=== PATIENT | female | born 1975 | race Caucasian/White ===

== ENCOUNTER 2016-09-30 10:26 | Emergency (ER) | payer OTHER, BC ==
[~2016-09-30 10:26] MED LIST: Lidocaine 1% with EPINEPHrine 1:100,000 20 ML MDV INFILT ONE
[2016-09-30] MEDS ORDERED: ClonazePAM 0.5 MG Tab PO ONE (11:06)
[2016-09-30] MEDS ORDERED: Metoprolol Tartrate 50 MG Tab PO ONE (11:07)
[2016-09-30] MEDS ORDERED: Lidocaine 2% Viscous Solution 15 ML Cup PO ONE (11:53)
[2016-09-30] MEDS ORDERED: Lidocaine 1% with EPINEPHrine 1:100,000 20 ML MDV INJECT ONE (12:13)
--- NOTE | 2016-09-30 12:13 | EDM.PDOC ---
ED HPI GENERAL MEDICAL PROBLEM - General Chief Complaint: General Stated Complaint: BLEEDING Time Seen by Provider: 09/30/16 10:45 Source of Information: Reports: Patient, Old records History Limitations: Reports: No limitations - History of Present Illness INITIAL COMMENTS - FREE TEXT/NARRATIVE: 40 yo female with a clotting disorder, protein C deficiency, who is on warfarin and who has been experiencing elevated BP recently without treatment. She bit her tongue in the night and cannot get it to stop. INR 3.5 last week. Onset: today Onset Date: 09/30/16 Onset Time: 02:30 Duration: Hour(s):, Constant Location: Reports: head (R side of tongue) Quality: Reports: Other (no pain) Severity: mild Improves with: Reports: None Worsens with: Reports: None Context: Reports: Other (HTN/Warfarin ) Associated Symptoms: Reports: denies other symptoms - Related Data Allergies Allergy/AdvReac Type Severity Reaction Status Date / Time No Known Allergies Allergy Verified 09/30/16 10:45 Home Meds: Home Meds DULoxetine [Cymbalta] 60 mg PO DAILY 04/15/16 [History] Fenofibrate [Fenofibrate] 1 tab PO DAILY 04/15/16 [History] Minocycline [Minocin] 1 cap PO BID 04/15/16 [History] Phytonadione [Vitamin K] 100 mcg PO DAILY 04/15/16 [History] Warfarin [Coumadin] 5 mg PO MOWEFR 04/15/16 [History] Warfarin [Coumadin] 7.5 mg PO SUTUTHSA 04/15/16 [History] clonazePAM [Clonazepam] 0.5 mg PO ASDIRECTED PRN 04/15/16 [History] Cyclobenzaprine [Flexeril] 10 mg PO TID PRN 09/30/16 [History] Past Medical History Cardiovascular History: Reports: Blood clots/VTE/DVT, Other (see below) Other Cardiovascular History: States she has had 3-4 blood DVT's in the past. Psychiatric History: Reports: Other (see below) Other Psychiatric History: Takes Lorazepam prn. Hematologic History: Reports: Other (see below) Other Hematologic History: Protein C deficiency. - Infectious Disease History Infectious Disease History: Reports: Chicken pox, Shingles Other Infectious Disease History: Denies any milti-drug resistant infections. - Past Surgical History GI Surgical History: Reports: Other (see below) Other GI Surgeries/Procedures: History of colon resection due to diverticulitis. Female Surgical History: Reports: Breast reduction, Hysterectomy, Other (see below) Other Female Surgeries/Procedures: States she has one ovary remaining. Social & Family History - Tobacco Use Smoking Status *Q: Never Smoker - Caffeine Use Caffeine Use: Reports: Soda - Recreational Drug Use Recreational Drug Use: No ED ROS GENERAL - Review of Systems Review Of Systems: See Below Constitutional: Reports: no symptoms HEENT: Reports: Other (bleeding tongue) Respiratory: Reports: No Symptoms Cardiovascular: Reports: No symptoms Skin: Reports: no symptoms Neurological: Reports: No Symptoms ED EXAM, GENERAL - Physical Exam Exam: See Below Exam Limited By: No limitations General Appearance: alert, WD/WN, no apparent distress Eye Exam: bilateral eye: normal inspection Ears: normal external exam, normal canal, hearing grossly normal Ear Exam: bilateral ear: auricle normal, canal normal Nose: normal inspection, normal mucosa, no blood Throat/Mouth: Normal inspection, Normal lips, Normal teeth, Normal gums, Normal oropharynx, Normal voice, No airway compromise Head: atraumatic, normocephalic Neck: normal inspection, supple Respiratory/Chest: no respiratory distress, lungs clear, normal breath sounds, no accessory muscle use Cardiovascular: regular rate, rhythm, no edema Neurological: alert, oriented, CN II-XII intact, normal cognition, no motor/ sensory deficits Psychiatric: normal affect, normal mood Skin Exam: Warm, Dry, Intact, Normal color, No rash Lymphatic: no adenopathy Course - Vital Signs Text/Narrative:: viscous xylocaine po-silver nitrate-unable to stop bleeding metoprolol tartrate 50 mg po 1% lidocaine with epi locally. Single purse stitch with 4-0 Vicryl Last Recorded V/S: Last Vital Signs Temp Pulse 73 09/30/16 11:17 Resp 18 09/30/16 10:30 BP 157/99 H 09/30/16 11:17 Pulse Ox 100 09/30/16 10:30 - Orders/Labs/Meds Labs: Laboratory Tests 09/30/16 Range/Units 10:55 PT 37.1 H* (8.7-11.1) INR 3.58 H (0.89-1.13) Meds: Medications Discontinued Medications Generic Name Dose Route Start Last Admin Trade Name Freq PRN Reason Stop Dose Admin Clonazepam 0.5 mg 09/30/16 11:06 09/30/16 11:18 Klonopin PO 09/30/16 11:07 0.5 mg ONETIME ONE Administration Lidocaine HCl 15 ml 09/30/16 11:53 Xylocaine 2% Viscous PO 09/30/16 11:54 ONETIME ONE Lidocaine/Epinephrine 3 ml 09/30/16 12:13 Xylocaine 1% With Epinephrine 1:100,000 INJECT 09/30/16 12:14 ONETIME ONE Metoprolol Tartrate 50 mg 09/30/16 11:07 09/30/16 11:17 Lopressor PO 09/30/16 11:08 50 mg ONETIME ONE Administration Departure - Departure Time of Disposition: 12:29 Disposition: Home, Self-Care 01 Condition: good Clinical Impression: Tongue laceration Qualifiers: Encounter type: initial encounter Qualified Code(s): S01.512A - Laceration without foreign body of oral cavity, initial encounter Forms: ED Department Discharge
[2016-09-30 15:46] VITALS: BP 159/97
== END 2016-09-30 12:42 | disposition home or self-care (01) ==
LOC: FB.ED 10:26
DX: S01.512A Laceration without foreign body of oral cavity, initial encounter (principal); D68.8 Other specified coagulation defects; D68.59 Other primary thrombophilia; Z86.718 Personal history of other venous thrombosis and embolism; Z90.49 Acquired absence of other specified parts of digestive tract; Z90.710 Acquired absence of both cervix and uterus; Z79.01 Long term (current) use of anticoagulants; Z79.899 Other long term (current) drug therapy; X58.XXXA Exposure to other specified factors, initial encounter
CPT/HCPCS: 36415; 41250; 85610; 99283; A9270; 12001; 12011

== ENCOUNTER 2016-12-21 11:55 | Emergency (ER) | payer OTHER, BC ==
[2016-12-21] MEDS ORDERED: Iopamidol 755 Mg/ML 100 ML Bottle IV SCH (12:30)
[2016-12-21 13:36] VITALS: BP 146/94
--- NOTE | 2016-12-22 02:20 | ER ---
DATE SEEN: 12/21/2016 HISTORY OF PRESENT ILLNESS: The patient is a 41-year-old female, who presents to the emergency department with left lower quadrant pain. She says she has had a history of diverticulitis in the past as well as gastric bypass. Abdominal pain started yesterday and progressively got worse, it remains localized to this area. She has also had a hysterectomy and one ovary removed. Her left ovary still in place. She says the pain is again pretty much in left lower quadrant pain. Sometimes, it feels like it is her left ovary. She denies any dysuria or hematuria. Did have a normal bowel movement yesterday. No nausea or fever. Denies any recent travels, trauma, or unusual foods. MEDICATIONS: 1. Coumadin. 2. Clonazepam. 3. Minocycline. 4. Lisinopril hydrochlorothiazide. 5. Fenofibrate. 6. Cymbalta. 7. Flexeril. ALLERGIES: No known drug allergies. PAST MEDICAL HISTORY: Pleurisy, dehydration, status post gastric bypass, status post hysterectomy. REVIEW OF SYSTEMS: CARDIOVASCULAR: No chest pain. PHYSICAL EXAMINATION: VITAL SIGNS: Afebrile at 36.8, pulse 72, blood pressure 146/94, 18 respiratory rate. LUNGS: Clear to auscultation. HEART: Regular rate and rhythm. ABDOMEN: Soft. Mild tenderness to palpation in left lower quadrant. No guarding. No rebound. No costovertebral angle tenderness. EXTREMITIES: No cyanosis, clubbing, or edema. LABORATORY DATA: Normal white count. Her INR is 3.53. Metabolic panel is within normal limits with creatinine of 0.8. Her AST is 27, her ALT is 31, her alkaline phosphatase is 33. Her urinalysis essentially within normal limits. Abdominal CT read by consulted Radiology as unremarkable. CT of abdomen and pelvis, no diverticular disease. EMERGENCY DEPARTMENT COURSE: The patient remained vitally stable. Pain mild. ASSESSMENT: Left lower quadrant pain. PLAN: Unclear etiology. We will encourage her to continue a bland diet. May use Tylenol for pain. Follow up primary physician in next couple of days. /[id number] KELL/UBALDO
== END 2016-12-21 15:05 | disposition home or self-care (01) ==
LOC: FB.ED 11:55
DX: R10.32 Left lower quadrant pain (principal); E86.0 Dehydration; Z98.84 Bariatric surgery status; Z90.710 Acquired absence of both cervix and uterus
CPT/HCPCS: 36415; 74177; 80053; 81001; 82150; 85025; 85610; 99284; Q9967

== ENCOUNTER 2017-01-12 11:36 | Emergency (ER) | payer OTHER, BC ==
[2017-01-12 11:48] VITALS: BP 141/87
[2017-01-12] MEDS ORDERED: Morphine 10 MG/ML Syringe IM ONE (11:53)
[2017-01-12] MEDS ORDERED: fentaNYL 100 MCG/2 ML SDV IVPUSH ONE (12:23)
[2017-01-12] MEDS ORDERED: Ketorolac 30 MG/ML SDV IVPUSH ONE (12:23)
--- NOTE | 2017-01-12 13:59 | ER ---
DATE SEEN: 01/12/2017 CHIEF COMPLAINT: Pain. HISTORY OF PRESENT ILLNESS: This is a 41-year-old female with back pain that started getting worse yesterday after she helped with some yard work. It is going down to the left lower extremity. Any weightbearing makes it worse. It is described as severe cramping. REVIEW OF SYSTEMS: No fever. No urinary symptoms. PAST MEDICAL HISTORY: Fibromyalgia. PHYSICAL EXAMINATION: VITAL SIGNS: Blood pressure is normal. Temperature is 97.3. BACK: Low back no obvious swelling. There is tenderness to palpation almost everywhere and range of motion unlimited but she is stiff. NEUROLOGIC: Showed no focal findings. LABORATORY DATA: None. IMPRESSION: Acute exacerbation of chronic back pain. PLAN: I initially gave her morphine and Valium, symptoms only marginally improved. I sent her home today and gave her ketorolac and some fentanyl. I will discharge her home on Flexeril 3 times a day p.r.n. and Percocet 3 times a day p.r.n. only 10 tablets. Follow up in the office next week. Time seen was 12 p.m. /[id number] PALMA/UBALDO
== END 2017-01-12 13:15 | disposition home or self-care (01) ==
LOC: FB.ED 11:36
DX: M54.9 Dorsalgia, unspecified (principal); G89.29 Other chronic pain
CPT/HCPCS: 96372; 96374; 96375; 99283; J1885; J2270; J3010; J3360

== ENCOUNTER 2017-10-07 10:26 | Emergency (ER) | payer OTHER, BC ==
[2017-10-07] MEDS ORDERED: Ondansetron 4 MG/2 ML SDV IVPUSH ONE (10:44)
--- NOTE | 2017-10-07 11:02 | EDM.PDOC ---
ED HPI GENERAL MEDICAL PROBLEM - General Stated Complaint: CHEST PAIN Time Seen by Provider: 10/07/17 10:26 Source of Information: Reports: Patient, Family History Limitations: Reports: No Limitations - History of Present Illness INITIAL COMMENTS - FREE TEXT/NARRATIVE: 41 y.o.w.f with a eriberto FH of CAD, came to the ed because of SSCP radiating to her left lat chest wall. Pt has protein S deficiency and is and Coumadin for that. She take VIT K as well in order to "stabilize" the INR while on Coumadin. 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 an INR level of 3.3 is "nl for her ". The pain is worse when she takes a deep breath. No N/V/D no lightheadedness, no dizziness or any other acute medical issues. BP 157/87 pulse 77 RR 18 Temp 36.8 Onset Date: 10/07/17 Onset Time: 07:00 Duration: Intermittent, Waxing/Waning Location: Reports: Chest Quality: Reports: Ache, Burning, Dull, Same as Previous Episode Severity: Mild Improves with: Reports: Rest Worsens with: Reports: Movement (taking a deep breath) Context: Reports: Other (F/H of CAD) Left Chest Pain Score (Numeric/FACES): 3 - Related Data Allergies Allergy/AdvReac Type Severity Reaction Status Date / Time No Known Allergies Allergy Verified 10/07/17 10:45 Home Meds: Home Meds DULoxetine [Cymbalta] 120 mg PO DAILY 04/15/16 [History] Fenofibrate 1 tab PO DAILY 04/15/16 [History] Minocycline [Minocin] 2 cap PO BID 04/15/16 [History] Phytonadione [Vitamin K] 100 mcg PO DAILY 04/15/16 [History] Warfarin [Coumadin] 5 mg PO .Thursday04/15/16 [History] Warfarin [Coumadin] 7.5 mg PO .SUTUWETHFRSA 04/15/16 [History] clonazePAM [Clonazepam] 0.5 mg PO ASDIRECTED PRN 04/15/16 [History] Cyclobenzaprine [Flexeril] 10 mg PO TID PRN 09/30/16 [History] ClonazePAM [KlonoPIN] 1 mg PO BEDTIME 10/07/17 [History] Ferrous Gluconate 324 mg PO DAILY 10/07/17 [History] Levofloxacin 500 mg PO DAILY #10 tablet 10/07/17 [Rx] traMADol [Ultram] 50 mg PO Q4H PRN #16 tab 10/07/17 [Rx] Past Medical History Cardiovascular History: Reports: Blood Clots/VTE/DVT, Other (See Below) Other Cardiovascular History: States she has had 3-4 blood DVT's in the past. Psychiatric History: Reports: Other (See Below) Other Psychiatric History: Takes Lorazepam prn. Hematologic History: Reports: Other (See Below) Other Hematologic History: Protein C deficiency. - Infectious Disease History Infectious Disease History: Reports: Chicken Pox, Shingles Other Infectious Disease History: Denies any milti-drug resistant infections. - Past Surgical History GI Surgical History: Reports: Other (See Below) Female Surgical History: Reports: Breast Reduction, Hysterectomy, Other (See Below) Social & Family History - Family History Family Medical History: Noncontributory - Tobacco Use Smoking Status *Q: Never Smoker Second Hand Smoke Exposure: No - Caffeine Use Caffeine Use: Reports: None - Recreational Drug Use Recreational Drug Use: No ED ROS GENERAL - Review of Systems Review Of Systems: See Below Constitutional: Reports: No Symptoms HEENT: Reports: No Symptoms Respiratory: Reports: No Symptoms Cardiovascular: Reports: Chest Pain, Palpitations Endocrine: Reports: No Symptoms GI/Abdominal: Reports: No Symptoms : Reports: No Symptoms Musculoskeletal: Reports: No Symptoms Skin: Reports: No Symptoms Neurological: Reports: No Symptoms Psychiatric: Reports: Anxiety Hematologic/Lymphatic: Reports: No Symptoms Immunologic: Reports: No Symptoms ED EXAM, GENERAL - Physical Exam Exam: See Below Exam Limited By: No Limitations General Appearance: Alert, WD/WN, Anxious, Mild Distress Eye Exam: Bilateral Eye: Normal Inspection Ears: Normal External Exam Ear Exam: Bilateral Ear: Auricle Normal Nose: Normal Inspection, Normal Mucosa Throat/Mouth: Normal Inspection, Normal Lips Head: Atraumatic, Normocephalic Neck: Normal Inspection, Supple, Non-Tender, Full Range of Motion Respiratory/Chest: No Respiratory Distress, Lungs Clear, Normal Breath Sounds Cardiovascular: Normal Peripheral Pulses, Regular Rate, Rhythm, No Edema, No Gallop, No JVD, No Murmur, No Rub Peripheral Pulses: 2+: Radial (L) GI/Abdominal: Normal Bowel Sounds, Soft, Non-Tender, No Organomegaly, No Abnormal Bruit (Female) Exam: Deferred Rectal (Female) Exam: Deferred Back Exam: Normal Inspection, Full Range of Motion Extremities: Normal Inspection, Normal Range of Motion, Non-Tender, No Pedal Edema, Normal Capillary Refill Neurological: Alert, Oriented, CN II-XII Intact, Normal Cognition, Normal Gait, No Motor/Sensory Deficits Psychiatric: Anxious, Tearful Skin Exam: Warm, Dry, Intact, Normal Color, No Rash Lymphatic: No Adenopathy EKG INTERPRETATION EKG Date: 10/07/17 Time: 10:40 Rhythm: NSR Rate (Beats/Min): 77 Hyrum: Normal P-Wave: Present QRS: Normal ST-T: Normal QT: Normal Comparison: NA - No Prior EKG Course - Vital Signs Text/Narrative:: 41 y.o.w.f with a strong FH of CAD, came to the ed because of SSCP radiating to her left lat chest wall. Pt has protein S deficiency and is and Coumadin for that. She take VIT K as well in order to "stabilize" the INR while on Coumadin. 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 an INR level of 3.3 is "nl for her ". The pain is worse when she takes a deep breath. No N/V/D no lightheadedness, no dizziness or any other acute medical issues. BP 157/87 pulse 77 RR 18 Temp 36.8 PE: WNWD W F C/O Pleuritic chest pain, in tears. No trauma, pt was seen the ed for same. Labs: CBC, BMP D Dimer Cardiac enzymes were all neg. UA pos for UTI INR 3.35 ( pt is on Coumadine) ECG: NSR No acute ST/T wave elevation. Imaging: CXR R diaphragm elevating due to poor insp: NAD as per RAD Impression: Atypical Chest pein, UTI Tx: Toradol, Ultram, Levoquin Reexam: Pain Improved, BP improved as well to 135/87 Plan: D/C with instructions Last Recorded V/S: Last Vital Signs Temp 36.3 C 10/07/17 13:35 Pulse 72 10/07/17 12:30 Resp 18 10/07/17 13:35 BP 135/69 10/07/17 13:35 Pulse Ox 100 10/07/17 13:35 - Orders/Labs/Meds Orders: Active Orders 24 hr Category Date Time Status CULTURE URINE [RM] Stat Lab 10/07/17 11:40 Ordered UA W/MICROSCOPIC [URIN] Stat Lab 10/07/17 11:40 Ordered EKG 12 Lead [EK] Routine Ther 10/07/17 10:31 Ordered Labs: Laboratory Tests 10/07/17 10/07/17 10/07/17 Range/Units 10:45 10:45 10:45 WBC 4.9 (4.5-12.0) X10-3/uL RBC 4.79 (3.23-5.20) x10(6)uL Hgb 14.0 (11.5-15.5) g/dL Hct 42.1 (30.0-51.3) % MCV 87.8 (80-96) fL MCH 29.3 (27.7-33.6) pg MCHC 33.4 (32.2-35.4) g/dL RDW 12.7 (11.5-15.5) % Plt Count 254 (125-369) X10(3)uL MPV 10.6 H (7.4-10.4) fL Neut % (Auto) 52.2 (46-82) % Lymph % (Auto) 38.0 H (13-37) % Reagan % (Auto) 6.4 (4-12) % Eos % (Auto) 2 (1.0-5.0) % Baso % (Auto) 1 (0-2) % Neut # (Auto) 2.5 (1.6-8.3) # Lymph # (Auto) 1.9 (0.6-5.0) # Reagan # (Auto) 0.3 (0.0-1.3) # Eos # (Auto) 0.1 (0.0-0.8) # Baso # (Auto) 0.1 (0.0-0.2) # PT (8.7-11.1) INR (0.89-1.13) D-Dimer, Quantitative < 100 L (100-400) ng/mL Sodium 140 (135-145) mmol/L Potassium 3.8 (3.5-5.3) mmol/L Chloride 105 (100-110) mmol/L Carbon Dioxide 24 (21-32) mmol/L BUN 20 H (7-18) mg/dL Creatinine 0.9 (0.55-1.02) mg/dL Est Cr Clr Drug Dosing TNP Estimated GFR (MDRD) > 60 (>60) BUN/Creatinine Ratio 22.2 H (9-20) Glucose 123 H (80-116) mg/dL Calcium 9.2 (8.6-10.2) mg/dL Troponin I (<0.017-0.056) ng/mL Urine Color (YELLOW) Urine Appearance (CLEAR) Urine pH (5.0-6.5) Ur Specific [place] (1.010-1.025) Urine Protein (NEGATIVE) mg/dL Urine Glucose (UA) (NEGATIVE) mg/dL Urine Ketones (NEGATIVE) mg/dL Urine Occult Blood (NEGATIVE) Urine Nitrite (NEGATIVE) Urine Bilirubin (NEGATIVE) Urine Urobilinogen (NEGATIVE) mg/dL Ur Leukocyte Esterase (NEGATIVE) Urine RBC (0) Urine WBC (0) Ur Squamous Epith Cells (NS,R,O) Urine Bacteria (NS) 10/07/17 10/07/17 10/07/17 Range/Units 10:45 10:45 11:40 WBC (4.5-12.0) X10-3/uL RBC (3.23-5.20) x10(6)uL Hgb (11.5-15.5) g/dL Hct (30.0-51.3) % MCV (80-96) fL MCH (27.7-33.6) pg MCHC (32.2-35.4) g/dL RDW (11.5-15.5) % Plt Count (125-369) X10(3)uL MPV (7.4-10.4) fL Neut % (Auto) (46-82) % Lymph % (Auto) (13-37) % Reagan % (Auto) (4-12) % Eos % (Auto) (1.0-5.0) % Baso % (Auto) (0-2) % Neut # (Auto) (1.6-8.3) # Lymph # (Auto) (0.6-5.0) # Reagan # (Auto) (0.0-1.3) # Eos # (Auto) (0.0-0.8) # Baso # (Auto) (0.0-0.2) # PT 34.2 H (8.7-11.1) INR 3.31 H (0.89-1.13) D-Dimer, Quantitative (100-400) ng/mL Sodium (135-145) mmol/L Potassium (3.5-5.3) mmol/L Chloride (100-110) mmol/L Carbon Dioxide (21-32) mmol/L BUN (7-18) mg/dL Creatinine (0.55-1.02) mg/dL Est Cr Clr Drug Dosing Estimated GFR (MDRD) (>60) BUN/Creatinine Ratio (9-20) Glucose (80-116) mg/dL Calcium (8.6-10.2) mg/dL Troponin I < 0.017 L (<0.017-0.056) ng/mL Urine Color Yellow (YELLOW) Urine Appearance Clear (CLEAR) Urine pH 5.0 (5.0-6.5) Ur Specific [place] 1.020 (1.010-1.025) Urine Protein Negative (NEGATIVE) mg/dL Urine Glucose (UA) Normal (NEGATIVE) mg/dL Urine Ketones Negative (NEGATIVE) mg/dL Urine Occult Blood Negative (NEGATIVE) Urine Nitrite Negative (NEGATIVE) Urine Bilirubin Negative (NEGATIVE) Urine Urobilinogen Normal (NEGATIVE) mg/dL Ur Leukocyte Esterase Moderate H (NEGATIVE) Urine RBC 0-5 (0) Urine WBC 10-20 H (0) Ur Squamous Epith Cells Moderate H (NS,R,O) Urine Bacteria Moderate H (NS) Meds: Medications Discontinued Medications Generic Name Dose Route Start Last Admin Trade Name Freq PRN Reason Stop Dose Admin Sodium Chloride 1,000 mls @ 999 mls/hr 10/07/17 11:20 10/07/17 11:30 Normal Saline IV 10/07/17 12:20 999 mls/hr .BOLUS ONE Administration Ketorolac Tromethamine 30 mg 10/07/17 12:10 10/07/17 12:19 Toradol IVPUSH 10/07/17 12:11 30 mg ONETIME ONE Administration Levofloxacin 500 mg 10/07/17 12:30 10/07/17 12:21 Levaquin PO 10/07/17 12:31 500 mg ONETIME ONE Administration Metoprolol Tartrate 25 mg 10/07/17 13:00 10/07/17 13:09 Lopressor PO 10/07/17 13:01 Not Given ONETIME STA Ondansetron HCl 8 mg 10/07/17 10:44 10/07/17 11:06 Zofran IVPUSH 10/07/17 10:45 8 mg ONETIME ONE Administration Tramadol HCl 50 mg 10/07/17 13:06 10/07/17 13:11 Ultram PO 10/07/17 13:07 50 mg ONETIME ONE Administration Departure - Departure Time of Disposition: 13:15 Disposition: Home, Self-Care 01 Condition: Good Clinical Impression: Atypical chest pain UTI (urinary tract infection) Qualifiers: Urinary tract infection type: acute cystitis Hematuria presence: without hematuria Qualified Code(s): N30.00 - Acute cystitis without hematuria Prescriptions: Levofloxacin 500 mg PO DAILY #10 tablet traMADol [Ultram] 50 mg PO Q4H PRN #16 tab PRN Reason: severe pain Instructions: Nonspecific Chest Pain, [id number] Referrals: Joe Queen MD [Primary Care Provider] - Forms: ED Department Discharge Additional Instructions: Please f/u with your PMD, check INR in 3-4 days, please come back to the ed if your symptoms get worse acutely - My Orders Last 24 Hours: My Active Orders 10/07/17 10:31 EKG 12 Lead [EK] Routine 10/07/17 11:40 CULTURE URINE [RM] Stat UA W/MICROSCOPIC [URIN] Stat - Assessment/Plan Last 24 Hours: My Active Orders 10/07/17 10:31 EKG 12 Lead [EK] Routine 10/07/17 11:40 CULTURE URINE [RM] Stat UA W/MICROSCOPIC [URIN] Stat
[2017-10-07] MEDS ORDERED: Sodium Chloride 0.9% 1,000 ML IV ONE (11:20)
[2017-10-07] MEDS ORDERED: Levofloxacin 250 MG Tab PO ONE (12:10)
[2017-10-07] MEDS ORDERED: Ketorolac 30 MG/ML SDV IVPUSH ONE (12:10)
[2017-10-07] MEDS ORDERED: Levofloxacin 500 MG Tab PO ONE (12:30)
[2017-10-07] MEDS: Metoprolol Tartrate 25 MG Tab PO STA ×2 (13:03→13:09)
[2017-10-07] MEDS ORDERED: traMADol 50 MG Tab PO ONE (13:06)
--- NOTE | 2017-10-07 13:29 | CR ---
INDICATION: Chest pain. CHEST: Two AP portable upright views of the chest were obtained 10/07/2017 and compared with 04/15/2016. Little interval change is suggested with no definite acute process. The heart appears to be normal in size and shape. The aorta is minimally calcified in the arch area. Overlying EKG leads are noted. An active infiltrate or effusion was not identified. IMPRESSION: No acute process - stable chest. MTDD
[2017-10-07 13:42] VITALS: BP 135/69
== END 2017-10-07 13:35 | disposition home or self-care (01) ==
LOC: FB.ED 10:26
DX: R07.89 Other chest pain (principal); N30.00 Acute cystitis without hematuria; Z79.899 Other long term (current) drug therapy
CPT/HCPCS: 36415; 71045; 80048; 81001; 84484; 85025; 85379; 85610; 87086; 93005; 96361; 96374; 96375; 99285; A9270; J1885; J2405; J7040

== ENCOUNTER 2017-12-28 18:50 | Emergency (ER) | payer OTHER, BC ==
[2017-12-28] MEDS ORDERED: Sodium Chloride 0.9% 1,000 ML IV ONE (21:15)
[2017-12-28] MEDS ORDERED: Ondansetron 4 MG/2 ML SDV IVPUSH ONE (21:20)
[2017-12-28] MEDS ORDERED: Ketorolac 30 MG/ML SDV IVPUSH ONE (21:20)
[2017-12-28] MEDS ORDERED: cefTRIAXone 500 MG in Sodium Chloride 0.9% 50 ML IV SCH (21:30)
[2017-12-28] MEDS ORDERED: metroNIDAZOLE/Normal Saline 500 MG in Premix Bag 1 BAG IV SCH (21:30)
[2017-12-28] MEDS ORDERED: Sodium Chloride 0.9% 10 ML Syringe FLUSH PRN (22:27)
--- NOTE | 2017-12-28 23:24 | EDM.PDOC ---
ED HPI GENERAL MEDICAL PROBLEM - General Chief Complaint: Abdominal Pain Stated Complaint: STOMACH PAIN Time Seen by Provider: 12/28/17 20:00 Source of Information: Reports: Patient History Limitations: Reports: No Limitations - History of Present Illness INITIAL COMMENTS - FREE TEXT/NARRATIVE: c/o LLQ pain x 5d, getting valerie pain LLQ x 5d, h/o tics x 2 from 5y ago, tx'ed in hospital 2m apart, pt says she never gets in'c WBC with skin infections no f/c/d, BM x 1 daily, has worked pt with resection 7" colon in 2017, pt states she "is not like everyone else" has Leiden Factor 5 deficiency, target INR 2.5-3.5 - Related Data Allergies Allergy/AdvReac Type Severity Reaction Status Date / Time No Known Allergies Allergy Verified 12/28/17 21:04 Home Meds: Home Meds DULoxetine [Cymbalta] 120 mg PO DAILY 04/15/16 [History] Fenofibrate 1 tab PO DAILY 04/15/16 [History] Minocycline [Minocin] 2 cap PO BID 04/15/16 [History] Phytonadione [Vitamin K] 100 mcg PO DAILY 04/15/16 [History] Warfarin [Coumadin] 5 mg PO .Thursday04/15/16 [History] Warfarin [Coumadin] 7.5 mg PO .SUTUWETHFRSA 04/15/16 [History] clonazePAM [Clonazepam] 0.5 mg PO ASDIRECTED PRN 04/15/16 [History] Cyclobenzaprine [Flexeril] 10 mg PO TID PRN 09/30/16 [History] ClonazePAM [KlonoPIN] 1 mg PO BEDTIME 10/07/17 [History] Ferrous Gluconate 324 mg PO DAILY 10/07/17 [History] Levofloxacin 500 mg PO DAILY #10 tablet 10/07/17 [Rx] traMADol [Ultram] 50 mg PO Q4H PRN #16 tab 10/07/17 [Rx] Amoxicillin/Potassium Clav [Augmentin 500-125 Tablet] 1 each PO BID #14 tablet 12/28/17 [Rx] metroNIDAZOLE [Flagyl ER] 750 mg PO BID #14 tab.er 12/28/17 [Rx] Past Medical History Cardiovascular History: Reports: Blood Clots/VTE/DVT, Other (See Below) Other Cardiovascular History: States she has had 3-4 blood DVT's in the past. Gastrointestinal History: Reports: Other (See Below) Other Gastrointestinal History: diverticulitis [employer] History: Reports: Other (See Below) Other OB/BYN History: left ovary removal Psychiatric History: Reports: Other (See Below) Other Psychiatric History: Takes Lorazepam prn. Hematologic History: Reports: Other (See Below) Other Hematologic History: Protein C deficiency. - Infectious Disease History Infectious Disease History: Reports: Chicken Pox, Shingles Other Infectious Disease History: Denies any milti-drug resistant infections. - Past Surgical History GI Surgical History: Reports: Other (See Below) Female Surgical History: Reports: Breast Reduction, Hysterectomy, Other (See Below) Social & Family History - Family History Family Medical History: Noncontributory - Caffeine Use Caffeine Use: Reports: None ED ROS GENERAL - Review of Systems Review Of Systems: See Below Constitutional: Reports: Decreased Appetite HEENT: Reports: No Symptoms, Vertigo Cardiovascular: Reports: No Symptoms Endocrine: Reports: No Symptoms GI/Abdominal: Reports: Abdominal Pain, Nausea. Denies: Vomiting : Reports: No Symptoms Musculoskeletal: Reports: No Symptoms Neurological: Reports: No Symptoms Psychiatric: Reports: No Symptoms ED EXAM, GI/ABD - Physical Exam Exam: See Below Exam Limited By: No Limitations General Appearance: Alert, WD/WN, No Apparent Distress Eyes: Bilateral: Normal Appearance, EOMI Ears: Normal External Exam, Hearing Grossly Normal Nose: Normal Inspection, Normal Mucosa, No Blood Throat/Mouth: Normal Inspection, Normal Lips, Normal Teeth, Normal Gums, Normal Oropharynx, Normal Voice, No Airway Compromise Head: Atraumatic, Normocephalic Neck: Normal Inspection, Supple, Non-Tender, Full Range of Motion Respiratory/Chest: No Respiratory Distress, Lungs Clear, Normal Breath Sounds, No Accessory Muscle Use, Chest Non-Tender Cardiovascular: Regular Rate, Rhythm GI/Abdominal Exam: Normal Bowel Sounds, Soft, Non-Tender, No Organomegaly (Female) Exam: Normal External Exam, Normal Speculum Exam Rectal (Female) Exam: Normal Exam, Normal Rectal Tone Back Exam: Normal Inspection, Full Range of Motion, NT Extremities: Normal Inspection, Normal Range of Motion, Non-Tender, Normal Capillary Refill, No Pedal Edema Neurological: Alert, Oriented, CN II-XII Intact, Normal Cognition, No Motor/ Sensory Deficits Psychiatric: Normal Affect, Normal Mood Skin Exam: Warm, Dry, Intact, Normal Color, No Rash Lymphatic: No Adenopathy Course - Vital Signs Last Recorded V/S: Last Vital Signs Temp 36.7 C 12/28/17 19:30 Pulse 91 12/28/17 19:30 Resp 16 12/28/17 19:30 BP 116/95 H 12/28/17 19:30 Pulse Ox 99 12/28/17 19:30 - Orders/Labs/Meds Orders: Active Orders 24 hr Category Date Time Status UA W/MICROSCOPIC [URIN] Stat Lab 12/28/17 20:45 Ordered Sodium Chloride 0.9% [Saline Flush] Med 12/28/17 22:27 Active 10 ml FLUSH ASDIRECTED PRN cefTRIAXone [Rocephin] 500 mg Med 12/28/17 21:30 Active Sodium Chloride 0.9% [Normal Saline] 50 ml IV Q24H metroNIDAZOLE/Normal Saline [Flagyl 500 MG in NS 100 ML Med 12/28/17 21:30 Active ] 500 mg Premix Bag 1 bag IV Q8H Medication Orders Ceftriaxone Sodium 500 mg/ (Sodium Chloride) 50 mls @ 100 mls/hr IV Q24H CINDY Last Admin: 12/28/17 23:30 Dose: 100 mls/hr Metronidazole 500 mg/ Premix 100 mls @ 100 mls/hr IV Q8H CINDY Last Admin: 12/28/17 22:23 Dose: 100 mls/hr Sodium Chloride (Saline Flush) 10 ml FLUSH ASDIRECTED PRN PRN Reason: IV Use Last Admin: 12/28/17 22:15 Dose: 10 ml Labs: Laboratory Tests 12/28/17 12/28/17 12/28/17 Range/Units 20:45 21:30 21:30 WBC 6.4 (4.5-12.0) X10-3/uL RBC 4.81 (3.23-5.20) x10(6)uL Hgb 14.4 (11.5-15.5) g/dL Hct 42.5 (30.0-51.3) % MCV 88.3 (80-96) fL MCH 29.9 (27.7-33.6) pg MCHC 33.8 (32.2-35.4) g/dL RDW 12.5 (11.5-15.5) % Plt Count 302 (125-369) X10(3)uL MPV 10.4 (7.4-10.4) fL Neut % (Auto) 39.5 L (46-82) % Lymph % (Auto) 49.4 H (13-37) % Campbell % (Auto) 7.1 (4-12) % Eos % (Auto) 3 (1.0-5.0) % Baso % (Auto) 1 (0-2) % Neut # (Auto) 2.5 (1.6-8.3) # Lymph # (Auto) 3.1 (0.6-5.0) # Campbell # (Auto) 0.5 (0.0-1.3) # Eos # (Auto) 0.2 (0.0-0.8) # Baso # (Auto) 0.1 (0.0-0.2) # PT (8.7-11.1) INR (0.89-1.13) Sodium 140 (135-145) mmol/L Potassium 3.6 (3.5-5.3) mmol/L Chloride 103 (100-110) mmol/L Carbon Dioxide 27 (21-32) mmol/L BUN 19 H (7-18) mg/dL Creatinine 1.0 (0.55-1.02) mg/dL Est Cr Clr Drug Dosing TNP Estimated GFR (MDRD) > 60 (>60) BUN/Creatinine Ratio 19.0 (9-20) Glucose 89 (80-116) mg/dL Calcium 9.6 (8.6-10.2) mg/dL Total Bilirubin 0.3 (0.1-1.3) mg/dL AST 20 (5-25) IU/L ALT 36 (12-36) U/L Alkaline Phosphatase 31 L (56-112) IU/L C-Reactive Protein (0.5-0.9) mg/dL Total Protein 7.3 (6.0-8.0) g/dL Albumin 3.8 (3.5-5.2) g/dL Globulin 3.5 g/dL Albumin/Globulin Ratio 1.1 Amylase 46 (25-115) U/L Urine Color Yellow (YELLOW) Urine Appearance Clear (CLEAR) Urine pH 6.5 (5.0-6.5) Ur Specific [place] 1.010 (1.010-1.025) Urine Protein Negative (NEGATIVE) mg/dL Urine Glucose (UA) Normal (NEGATIVE) mg/dL Urine Ketones Negative (NEGATIVE) mg/dL Urine Occult Blood Negative (NEGATIVE) Urine Nitrite Negative (NEGATIVE) Urine Bilirubin Negative (NEGATIVE) Urine Urobilinogen Normal (NEGATIVE) mg/dL Ur Leukocyte Esterase Negative (NEGATIVE) Urine RBC 0-5 (0) Urine WBC 0-5 (0) Ur Squamous Epith Cells Occasional (NS,R,O) Urine Bacteria Rare H (NS) 12/28/17 12/28/17 Range/Units 21:30 21:30 WBC (4.5-12.0) X10-3/uL RBC (3.23-5.20) x10(6)uL Hgb (11.5-15.5) g/dL Hct (30.0-51.3) % MCV (80-96) fL MCH (27.7-33.6) pg MCHC (32.2-35.4) g/dL RDW (11.5-15.5) % Plt Count (125-369) X10(3)uL MPV (7.4-10.4) fL Neut % (Auto) (46-82) % Lymph % (Auto) (13-37) % [place] % (Auto) (4-12) % Eos % (Auto) (1.0-5.0) % Baso % (Auto) (0-2) % Neut # (Auto) (1.6-8.3) # Lymph # (Auto) (0.6-5.0) # Campbell # (Auto) (0.0-1.3) # Eos # (Auto) (0.0-0.8) # Baso # (Auto) (0.0-0.2) # PT 31.2 H (8.7-11.1) INR 3.26 H (0.89-1.13) Sodium (135-145) mmol/L Potassium (3.5-5.3) mmol/L Chloride (100-110) mmol/L Carbon Dioxide (21-32) mmol/L BUN (7-18) mg/dL Creatinine (0.55-1.02) mg/dL Est Cr Clr Drug Dosing Estimated GFR (MDRD) (>60) BUN/Creatinine Ratio (9-20) Glucose (80-116) mg/dL Calcium (8.6-10.2) mg/dL Total Bilirubin (0.1-1.3) mg/dL AST (5-25) IU/L ALT (12-36) U/L Alkaline Phosphatase (56-112) IU/L C-Reactive Protein < 0.2 L (0.5-0.9) mg/dL Total Protein (6.0-8.0) g/dL Albumin (3.5-5.2) g/dL Globulin g/dL Albumin/Globulin Ratio Amylase (25-115) U/L Urine Color (YELLOW) Urine Appearance (CLEAR) Urine pH (5.0-6.5) Ur Specific [place] (1.010-1.025) Urine Protein (NEGATIVE) mg/dL Urine Glucose (UA) (NEGATIVE) mg/dL Urine Ketones (NEGATIVE) mg/dL Urine Occult Blood (NEGATIVE) Urine Nitrite (NEGATIVE) Urine Bilirubin (NEGATIVE) Urine Urobilinogen (NEGATIVE) mg/dL Ur Leukocyte Esterase (NEGATIVE) Urine RBC (0) Urine WBC (0) Ur Squamous Epith Cells (NS,R,O) Urine Bacteria (NS) Meds: Medications Generic Name Dose Route Start Last Admin Trade Name Freq PRN Reason Stop Dose Admin Ceftriaxone Sodium 500 mg/ 50 mls @ 100 mls/hr 12/28/17 21:30 12/28/17 23:30 Sodium Chloride IV 100 mls/hr Q24H CINDY Administration Metronidazole 500 mg/ Premix 100 mls @ 100 mls/hr 12/28/17 21:30 12/28/17 22: 23 IV 100 mls/hr Q8H CINDY Administration Sodium Chloride 10 ml 12/28/17 22:27 12/28/17 22:15 Saline Flush FLUSH 10 ml ASDIRECTED PRN Administration IV Use Discontinued Medications Generic Name Dose Route Start Last Admin Trade Name Freq PRN Reason Stop Dose Admin Sodium Chloride 1,000 mls @ 999 mls/hr 12/28/17 21:15 12/28/17 22:17 Normal Saline IV 12/28/17 22:15 999 mls/hr .BOLUS ONE Administration Ketorolac Tromethamine 30 mg 12/28/17 21:20 12/28/17 22:19 Toradol IVPUSH 12/28/17 21:21 30 mg ONETIME ONE Administration Ondansetron HCl 4 mg 12/28/17 21:20 12/28/17 22:21 Zofran IVPUSH 12/28/17 21:21 4 mg ONETIME ONE Administration Departure - Departure Time of Disposition: 23:26 Disposition: Home, Self-Care 01 Condition: Good Clinical Impression: Abdominal pain, LLQ - Discharge Information Prescriptions: Amoxicillin/Potassium Clav [Augmentin 500-125 Tablet] 1 each PO BID #14 tablet metroNIDAZOLE [Flagyl ER] 750 mg PO BID #14 tab.er Instructions: Abdominal Pain, Adult Referrals: Joe Queen MD [Primary Care Provider] - Forms: ED Department Discharge Additional Instructions: You history and exam is suspicious--although not diagnostic for--acute diverticulitis. Your blood and urine tests, however, do not support that diagnosis. Nevertheless, ti can be reasonable to treat with 2 antibiotics (Augmentin and Flagyl) for 1 week For pain, soak in warm water 4 times a day. For infection, take Augmentin 500 mg 1 tab 2 times a day. For infection, take metronidazole 500 mg 1 tab 3 times a day. No alcohol See your doctor in 2-3 days. Call your Physician or Return to Emergency Department if: * Your condition worsens in any way. * You develop fever greater than 100.4. * You have vomitting that does not stop with medications. * You have pain that is not controlled with medications. - My Orders Last 24 Hours: My Active Orders 12/28/17 20:45 UA W/MICROSCOPIC [URIN] Stat 12/28/17 21:30 cefTRIAXone [Rocephin] 500 mg Sodium Chloride 0.9% [Normal Saline] 50 ml IV Q24H metroNIDAZOLE/Normal Saline [Flagyl 500 MG in NS 100 ML] 500 mg Premix Bag 1 bag IV Q8H 12/28/17 22:27 Sodium Chloride 0.9% [Saline Flush] 10 ml FLUSH ASDIRECTED PRN - Assessment/Plan Last 24 Hours: My Active Orders 12/28/17 20:45 UA W/MICROSCOPIC [URIN] Stat 12/28/17 21:30 cefTRIAXone [Rocephin] 500 mg Sodium Chloride 0.9% [Normal Saline] 50 ml IV Q24H metroNIDAZOLE/Normal Saline [Flagyl 500 MG in NS 100 ML] 500 mg Premix Bag 1 bag IV Q8H 12/28/17 22:27 Sodium Chloride 0.9% [Saline Flush] 10 ml FLUSH ASDIRECTED PRN
[2017-12-30 02:34] VITALS: BP 129/84
== END 2017-12-29 00:30 | disposition home or self-care (01) ==
LOC: FB.ED 18:50
DX: R10.32 Left lower quadrant pain (principal); Z79.899 Other long term (current) drug therapy; Z79.01 Long term (current) use of anticoagulants
CPT/HCPCS: 36415; 80053; 81001; 82150; 85025; 85610; 86140; 96365; 96367; 96375; 99284; J0696; J1885; J2405; J7030; J7050

== ENCOUNTER 2018-01-03 11:30 | Emergency (ER) | payer OTHER, BC ==
[2018-01-03] MEDS ORDERED: Ketorolac 30 MG/ML SDV IVPUSH ONE (12:13)
[2018-01-03] MEDS ORDERED: Iopamidol 755 Mg/ML 75 ML Bottle IV ONE (12:39)
[2018-01-03] MEDS ORDERED: Diatrizoate Meglumine/Diatrizoate Sodium 37% 30 ML Bottle PO SCH (12:45)
--- NOTE | 2018-01-03 13:45 | EDM.PDOC ---
ED HPI GENERAL MEDICAL PROBLEM - General Chief Complaint: Abdominal Pain Stated Complaint: LOWER ABDOMINAL PAIN ON LEFT SIDE Time Seen by Provider: 01/03/18 11:30 Source of Information: Reports: Patient, Family History Limitations: Reports: No Limitations - History of Present Illness INITIAL COMMENTS - FREE TEXT/NARRATIVE: 42 y.o.w.f with a history of diverticulitis, partial sigmoid resection, seen last week for same in the ed when she was Augmentin and flagyl was presciped.Pt did not improve since which prompted her to come back to the ED. No dysuria, no bloos in stool, no trauma, S/P partial hysterectomy, last CT a few years ago. Pt is passing loose stool. No N/V or any other acute medical issues. 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 BP 141/96 Pulse 64 RR 18 Pulse ox 99% on RA. Temp 36.6 Onset Date: 12/28/17 Onset Time: 07:00 Duration: Day(s):, Intermittent Location: Reports: Abdomen Quality: Reports: Ache, Burning, Dull Severity: Moderate Improves with: Reports: Rest Worsens with: Reports: Movement Context: Reports: Other (Has h/o Diverticulutis) Associated Symptoms: Reports: No Other Symptoms left adbomen Pain Score (Numeric/FACES): 6 - Related Data Allergies Allergy/AdvReac Type Severity Reaction Status Date / Time No Known Allergies Allergy Verified 01/03/18 13:41 Home Meds: Home Meds DULoxetine [Cymbalta] 120 mg PO DAILY 04/15/16 [History] Fenofibrate 1 tab PO DAILY 04/15/16 [History] Minocycline [Minocin] 2 cap PO BID 04/15/16 [History] Phytonadione [Vitamin K] 100 mcg PO DAILY 04/15/16 [History] Warfarin [Coumadin] 5 mg PO ASDIRECTED 04/15/16 [History] Warfarin [Coumadin] 7.5 mg PO SUTUWETHFRSA 04/15/16 [History] clonazePAM [Clonazepam] 0.5 mg PO ASDIRECTED PRN 04/15/16 [History] Cyclobenzaprine [Flexeril] 10 mg PO TID PRN 09/30/16 [History] ClonazePAM [KlonoPIN] 1 mg PO BEDTIME 10/07/17 [History] Ferrous Gluconate 324 mg PO DAILY 10/07/17 [History] Amoxicillin/Potassium Clav [Augmentin 500-125 Tablet] 1 each PO BID #14 tablet 12/28/17 [Rx] metroNIDAZOLE [Flagyl ER] 750 mg PO BID #14 tab.er 12/28/17 [Rx] .Albuterol Inhaler 1 inh INH ASDIRECTED PRN 12/30/17 [History] .Albuterol Neb 1 dose INH ASDIRECTED PRN 12/30/17 [History] Lisinopril/Hydrochlorothiazide [Lisinopril-Hctz 10-12.5 mg Tab] 1 tab PO DAILY 12/30/17 [History] Pramipexole Di-HCl [Mirapex] 1 tab PO ASDIRECTED 12/30/17 [History] buPROPion [Wellbutrin SR] 150 mg PO DAILY 12/30/17 [History] traMADol HCl [Ultram] 50 mg PO QAM PRN #8 tablet 01/03/18 [Rx] Past Medical History Cardiovascular History: Reports: Blood Clots/VTE/DVT, Other (See Below) Other Cardiovascular History: States she has had 3-4 blood DVT's in the past. Gastrointestinal History: Reports: Other (See Below) Other Gastrointestinal History: diverticulitis DIRECT[employer] SERVICES History: Reports: Other (See Below) Other OB/BYN History: left ovary removal Psychiatric History: Reports: Other (See Below) Other Psychiatric History: Takes Lorazepam prn. Hematologic History: Reports: Other (See Below) Other Hematologic History: Protein C deficiency. - Infectious Disease History Infectious Disease History: Reports: Chicken Pox, Shingles Other Infectious Disease History: Denies any milti-drug resistant infections. - Past Surgical History GI Surgical History: Reports: Other (See Below) Female Surgical History: Reports: Breast Reduction, Hysterectomy, Other (See Below) Social & Family History - Family History Family Medical History: Noncontributory - Caffeine Use Caffeine Use: Reports: None Other Caffeine Use: Patient states she drinks small amount of soda. ED ROS GENERAL - Review of Systems Review Of Systems: See Below Constitutional: Reports: No Symptoms HEENT: Reports: No Symptoms Respiratory: Reports: No Symptoms Cardiovascular: Reports: No Symptoms Endocrine: Reports: No Symptoms GI/Abdominal: Reports: Abdominal Pain (RLQ of abdomen) : Reports: No Symptoms Musculoskeletal: Reports: No Symptoms Skin: Reports: No Symptoms Neurological: Reports: No Symptoms Psychiatric: Reports: No Symptoms Hematologic/Lymphatic: Reports: Other (Prot C deficiency) Immunologic: Reports: No Symptoms ED EXAM, GI/ABD - Physical Exam Exam: See Below Exam Limited By: No Limitations General Appearance: Alert, WD/WN, Mild Distress Eyes: Bilateral: Normal Appearance Ears: Normal External Exam Nose: Normal Inspection, Normal Mucosa, No Blood Throat/Mouth: Normal Inspection, Normal Lips, Normal Teeth, Normal Gums, Normal Oropharynx, Normal Voice, No Airway Compromise Head: Atraumatic, Normocephalic Neck: Normal Inspection, Supple, Non-Tender, Full Range of Motion Respiratory/Chest: No Respiratory Distress Cardiovascular: Normal Peripheral Pulses, Regular Rate, Rhythm, No Edema, No Gallop, No JVD, No Murmur, No Rub GI/Abdominal Exam: Normal Bowel Sounds, Tender (LLQ of abdomen) (Female) Exam: Deferred Rectal (Female) Exam: Deferred Back Exam: Normal Inspection, Full Range of Motion Extremities: Normal Inspection, Normal Range of Motion, Non-Tender, No Pedal Edema, Normal Capillary Refill Neurological: Alert, Oriented, CN II-XII Intact, Normal Cognition, Normal Gait, No Motor/Sensory Deficits Psychiatric: Normal Affect, Normal Mood Skin Exam: Warm, Dry, Intact, Normal Color, No Rash Lymphatic: No Adenopathy Course - Vital Signs Text/Narrative:: 42 y.o.w.f with a history of diverticulitis, partial sigmoid resection, seen last week for same in the ed when she was Augmentin and flagyl was presciped.Pt did not improve since which prompted her to come back to the ED. No dysuria, no bloos in stool, no trauma, S/P partial hysterectomy, last CT a few years ago. Pt is passing loose stool. No N/V or any other acute medical issues. 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 BP 141/96 Pulse 64 RR 18 Pulse ox 99% on RA. Temp 36.6. Imaging: CT abd with contrast: NAD Labs: CBC, BMP and UA Nl INR was 3.76 BUN/CR ration was elevated Impression: H/O diverticulitis, Dehydration, LLQ abd. pain, cause not determined , elevated INR(on coumadine) Tx: Toradol. Reexam: Pt's symptoms improved Plan: D/C with instructions Last Recorded V/S: Last Vital Signs Temp 36.6 C 01/03/18 11:40 Pulse 64 01/03/18 11:40 Resp 18 01/03/18 11:40 BP 141/96 H 01/03/18 11:40 Pulse Ox 100 01/03/18 11:40 - Orders/Labs/Meds Orders: Active Orders 24 hr Category Date Time Status Abdomen Pelvis w Cont [CT] Stat Exams 01/03/18 12:10 Taken C DIFFICILE, CYTOTOXIN B Urgent Lab 01/03/18 12:12 Ordered URINALYSIS W/MICROSCOPIC [UA W/MICROSCOPIC] [URIN] Stat Lab 01/03/18 13:02 Ordered Diatrizoate Sunshine/Diatrizoate Na [Gastrografin 37%] Med 01/03/18 12:45 Active 30 ml PO . DIRECTED Medication Orders Diatrizoate Meglum/Diatrizoate Sod (Gastrografin 37%) 30 ml PO . DIRECTED CINDY Last Admin: 01/03/18 13:09 Dose: 30 ml Labs: Laboratory Tests 01/03/18 01/03/18 01/03/18 Range/Units 12:30 12:30 12:30 WBC 5.7 (4.5-12.0) X10-3/uL RBC 4.69 (3.23-5.20) x10(6)uL Hgb 14.2 (11.5-15.5) g/dL Hct 41.5 (30.0-51.3) % MCV 88.4 (80-96) fL MCH 30.2 (27.7-33.6) pg MCHC 34.1 (32.2-35.4) g/dL RDW 12.5 (11.5-15.5) % Plt Count 260 (125-369) X10(3)uL MPV 10.3 (7.4-10.4) fL Neut % (Auto) 58.2 (46-82) % Lymph % (Auto) 33.7 (13-37) % [place] % (Auto) 5.5 (4-12) % Eos % (Auto) 1 (1.0-5.0) % Baso % (Auto) 1 (0-2) % Neut # (Auto) 3.3 (1.6-8.3) # Lymph # (Auto) 1.9 (0.6-5.0) # [place] # (Auto) 0.3 (0.0-1.3) # Eos # (Auto) 0.1 (0.0-0.8) # Baso # (Auto) 0.1 (0.0-0.2) # PT 35.8 H* (8.7-11.1) INR 3.74 H (0.89-1.13) Sodium 138 (135-145) mmol/L Potassium 3.9 (3.5-5.3) mmol/L Chloride 103 (100-110) mmol/L Carbon Dioxide 28 (21-32) mmol/L BUN 23 H (7-18) mg/dL Creatinine 0.9 (0.55-1.02) mg/dL Est Cr Clr Drug Dosing TNP Estimated GFR (MDRD) > 60 (>60) BUN/Creatinine Ratio 25.6 H (9-20) Glucose 92 (80-116) mg/dL Calcium 9.1 (8.6-10.2) mg/dL Total Bilirubin 0.3 (0.1-1.3) mg/dL Direct Bilirubin 0.07 L (0.10-0.20) mg/dL AST 24 D (5-25) IU/L ALT 52 H D (12-36) U/L Alkaline Phosphatase 34 L (56-112) IU/L Total Protein 7.1 (6.0-8.0) g/dL Albumin 3.7 (3.5-5.2) g/dL Amylase 51 (25-115) U/L Urine Color (YELLOW) Urine Appearance (CLEAR) Urine pH (5.0-6.5) Ur Specific [place] (1.010-1.025) Urine Protein (NEGATIVE) mg/dL Urine Glucose (UA) (NEGATIVE) mg/dL Urine Ketones (NEGATIVE) mg/dL Urine Occult Blood (NEGATIVE) Urine Nitrite (NEGATIVE) Urine Bilirubin (NEGATIVE) Urine Urobilinogen (NEGATIVE) mg/dL Ur Leukocyte Esterase (NEGATIVE) Urine RBC (0) Urine WBC (0) Ur Squamous Epith Cells (NS,R,O) Urine Bacteria (NS) 01/03/18 Range/Units 13:02 WBC (4.5-12.0) X10-3/uL RBC (3.23-5.20) x10(6)uL Hgb (11.5-15.5) g/dL Hct (30.0-51.3) % MCV (80-96) fL MCH (27.7-33.6) pg MCHC (32.2-35.4) g/dL RDW (11.5-15.5) % Plt Count (125-369) X10(3)uL MPV (7.4-10.4) fL Neut % (Auto) (46-82) % Lymph % (Auto) (13-37) % [place] % (Auto) (4-12) % Eos % (Auto) (1.0-5.0) % Baso % (Auto) (0-2) % Neut # (Auto) (1.6-8.3) # Lymph # (Auto) (0.6-5.0) # [place] # (Auto) (0.0-1.3) # Eos # (Auto) (0.0-0.8) # Baso # (Auto) (0.0-0.2) # PT (8.7-11.1) INR (0.89-1.13) Sodium (135-145) mmol/L Potassium (3.5-5.3) mmol/L Chloride (100-110) mmol/L Carbon Dioxide (21-32) mmol/L BUN (7-18) mg/dL Creatinine (0.55-1.02) mg/dL Est Cr Clr Drug Dosing Estimated GFR (MDRD) (>60) BUN/Creatinine Ratio (9-20) Glucose (80-116) mg/dL Calcium (8.6-10.2) mg/dL Total Bilirubin (0.1-1.3) mg/dL Direct Bilirubin (0.10-0.20) mg/dL AST (5-25) IU/L ALT (12-36) U/L Alkaline Phosphatase (56-112) IU/L Total Protein (6.0-8.0) g/dL Albumin (3.5-5.2) g/dL Amylase (25-115) U/L Urine Color Yellow (YELLOW) Urine Appearance Clear (CLEAR) Urine pH 5.0 (5.0-6.5) Ur Specific [place] 1.020 (1.010-1.025) Urine Protein Negative (NEGATIVE) mg/dL Urine Glucose (UA) Normal (NEGATIVE) mg/dL Urine Ketones Negative (NEGATIVE) mg/dL Urine Occult Blood Negative (NEGATIVE) Urine Nitrite Negative (NEGATIVE) Urine Bilirubin Negative (NEGATIVE) Urine Urobilinogen Normal (NEGATIVE) mg/dL Ur Leukocyte Esterase Negative (NEGATIVE) Urine RBC Not seen (0) Urine WBC 0-5 (0) Ur Squamous Epith Cells Rare (NS,R,O) Urine Bacteria Rare H (NS) Meds: Medications Generic Name Dose Route Start Last Admin Trade Name Freq PRN Reason Stop Dose Admin Diatrizoate Meglum/Diatrizoate Sod 30 ml 01/03/18 12:45 01/03/18 13:09 Gastrografin 37% PO 30 ml . DIRECTED CINDY Administration Discontinued Medications Generic Name Dose Route Start Last Admin Trade Name Freq PRN Reason Stop Dose Admin Iopamidol 75 ml 01/03/18 12:39 01/03/18 13:09 Isovue-370 (76%) IV 01/03/18 12:40 75 ml ONETIME ONE Administration Ketorolac Tromethamine 30 mg 01/03/18 12:13 01/03/18 12:52 Toradol IVPUSH 01/03/18 12:14 30 mg ONETIME ONE Administration Departure - Departure Time of Disposition: 14:07 Disposition: Home, Self-Care 01 Condition: Good Clinical Impression: Abdominal pain Qualifiers: Abdominal location: left lower quadrant Qualified Code(s): R10.32 - Left lower quadrant pain - Discharge Information Prescriptions: traMADol HCl [Ultram] 50 mg PO QAM PRN #8 tablet PRN Reason: for severe pain only Instructions: Abdominal Pain, Adult, Dehydration, Adult Referrals: Joe Queen MD [Primary Care Provider] - Forms: ED Department Discharge Additional Instructions: Please increase water intake, please take the pain meds as recommeded, please f/ u with your PMD, decr Coumdine to 3.5 mg daily, [id number] come back if your symptoms get worse acutely - My Orders Last 24 Hours: My Active Orders 01/03/18 12:10 Abdomen Pelvis w Cont [CT] Stat 01/03/18 12:12 C DIFFICILE, CYTOTOXIN B Urgent 01/03/18 12:45 Diatrizoate Sunshine/Diatrizoate Na [Gastrografin 37%] 30 ml PO . DIRECTED 01/03/18 13:02 URINALYSIS W/MICROSCOPIC [UA W/MICROSCOPIC] [URIN] Stat - Assessment/Plan Last 24 Hours: My Active Orders 01/03/18 12:10 Abdomen Pelvis w Cont [CT] Stat 01/03/18 12:12 C DIFFICILE, CYTOTOXIN B Urgent 01/03/18 12:45 Diatrizoate Sunshine/Diatrizoate Na [Gastrografin 37%] 30 ml PO . DIRECTED 01/03/18 13:02 URINALYSIS W/MICROSCOPIC [UA W/MICROSCOPIC] [URIN] Stat
[2018-01-03 17:31] VITALS: BP 128/87
== END 2018-01-03 14:22 | disposition home or self-care (01) ==
LOC: FB.ED 11:30
DX: R10.32 Left lower quadrant pain (principal); E86.0 Dehydration; R79.1 Abnormal coagulation profile; Z79.01 Long term (current) use of anticoagulants; Z87.19 Personal history of other diseases of the digestive system; Z98.890 Other specified postprocedural states; Z79.899 Other long term (current) drug therapy
CPT/HCPCS: 36415; 74177; 80048; 80076; 81001; 82150; 85025; 85610; 96374; 99284; J1885; Q9963; Q9967

== ENCOUNTER 2018-03-31 13:38 | Emergency (ER) | payer OTHER, BC ==
[2018-03-31] MEDS ORDERED: Ketorolac 60 MG/2 ML SDV IM ONE (14:10)
[2018-03-31] MEDS ORDERED: Ondansetron 4 MG/2 ML SDV IM ONE (14:11)
--- NOTE | 2018-03-31 14:20 | EDM.PDOC ---
ED HPI GENERAL MEDICAL PROBLEM - General Chief Complaint: Back Pain or Injury Stated Complaint: HEAD BACK PAIN Time Seen by Provider: 03/31/18 14:17 Source of Information: Reports: Patient History Limitations: Reports: No Limitations - History of Present Illness INITIAL COMMENTS - FREE TEXT/NARRATIVE: Complains of headache, neck and back pain after dog pulled on leash. Did not fall to the ground. On Coumadin for Protein C deficiency. Onset: Today Location: Reports: Head, Back Tailbone to head Pain Score (Numeric/FACES): 9 - Related Data Allergies Allergy/AdvReac Type Severity Reaction Status Date / Time No Known Allergies Allergy Verified 03/31/18 13:41 Home Meds: Home Meds DULoxetine [Cymbalta] 120 mg PO BEDTIME 04/15/16 [History] Fenofibrate 1 tab PO DAILY 04/15/16 [History] Minocycline [Minocin] 2 cap PO BEDTIME 04/15/16 [History] Phytonadione [Vitamin K] 100 mcg PO BEDTIME 04/15/16 [History] Warfarin [Coumadin] 5 mg PO MOWEFR 04/15/16 [History] Warfarin [Coumadin] 7.5 mg PO SUTUTHSA 04/15/16 [History] clonazePAM [Clonazepam] 0.5 mg PO ASDIRECTED PRN 04/15/16 [History] ClonazePAM [KlonoPIN] 1 mg PO BEDTIME 10/07/17 [History] Ferrous Gluconate 2 tab PO DAILY 10/07/17 [History] .Albuterol Inhaler 1 inh INH ASDIRECTED PRN 12/30/17 [History] .Albuterol Neb 1 dose INH ASDIRECTED PRN 12/30/17 [History] Lisinopril/Hydrochlorothiazide [Lisinopril-Hctz 10-12.5 mg Tab] 1 tab PO DAILY 12/30/17 [History] Pramipexole Di-HCl [Mirapex] 1 tab PO BEDTIME 12/30/17 [History] buPROPion [Wellbutrin SR] 150 mg PO DAILY 12/30/17 [History] Gabapentin [Neurontin] 300 mg PO BEDTIME 03/31/18 [History] Magnesium Glycinate [Mag Glycinate] 100 mg PO DAILY 03/31/18 [History] Methocarbamol [Robaxin] 1,500 mg PO Q8H PRN #40 tab 03/31/18 [Rx] Vit37/Iron/Folic Acid [Prenata] 1 each PO DAILY 03/31/18 [History] Past Medical History Cardiovascular History: Reports: Blood Clots/VTE/DVT, Other (See Below) Other Cardiovascular History: States she has had 3-4 blood DVT's in the past. 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 Hematologic History: Reports: Other (See Below) Other Hematologic History: Protein C deficiency. - Infectious Disease History Infectious Disease History: Reports: Chicken Pox, Shingles Other Infectious Disease History: Denies any milti-drug resistant infections. - Past Surgical History GI Surgical History: Reports: Other (See Below) Female Surgical History: Reports: Breast Reduction, Hysterectomy, Other (See Below) Social & Family History - Family History Family Medical History: Noncontributory - Caffeine Use Caffeine Use: Reports: None Other Caffeine Use: Patient states she drinks small amount of soda. ED ROS GENERAL - Review of Systems Review Of Systems: See Below Constitutional: Reports: No Symptoms HEENT: Reports: No Symptoms Respiratory: Reports: No Symptoms Cardiovascular: Reports: No Symptoms Endocrine: Reports: No Symptoms GI/Abdominal: Reports: Nausea. Denies: Vomiting : Reports: No Symptoms Musculoskeletal: Reports: Back Pain (upper and lower) Skin: Reports: No Symptoms Neurological: Reports: Headache Psychiatric: Reports: No Symptoms Hematologic/Lymphatic: Reports: No Symptoms Immunologic: Reports: No Symptoms ED EXAM, GENERAL - Physical Exam Exam: See Below Exam Limited By: No Limitations General Appearance: Alert, WD/WN, Mild Distress Eye Exam: Bilateral Eye: EOMI, PERRL Ears: Normal External Exam Nose: Normal Inspection Throat/Mouth: No Airway Compromise Head: Atraumatic, Normocephalic Neck: Full Range of Motion Respiratory/Chest: No Respiratory Distress, Lungs Clear, Normal Breath Sounds Cardiovascular: Regular Rate, Rhythm, No Murmur GI/Abdominal: No Distention Back Exam: Other (moderate midline tenderness upper, mid and lower back) Extremities: Normal Range of Motion Neurological: Alert, No Motor/Sensory Deficits Psychiatric: Normal Affect, Normal Mood Skin Exam: Warm, Dry, Intact Course - Vital Signs Last Recorded V/S: Last Vital Signs Temp 36.5 C 03/31/18 13:38 Pulse 78 03/31/18 13:38 Resp 20 03/31/18 13:38 BP 140/93 H 03/31/18 13:38 Pulse Ox 100 03/31/18 13:38 - Orders/Labs/Meds Orders: Active Orders 24 hr Category Date Time Status Head wo Cont [CT] Stat Exams 03/31/18 14:12 Taken Lumbar Spine wo Cont [CT] Stat Exams 03/31/18 14:12 Taken Thoracic Spine wo Cont [CT] Stat Exams 03/31/18 15:45 Taken Meds: Medications Discontinued Medications Generic Name Dose Route Start Last Admin Trade Name Freq PRN Reason Stop Dose Admin Hydromorphone HCl 1 mg 03/31/18 15:29 03/31/18 15:45 Dilaudid IM 03/31/18 15:30 1 mg ONETIME ONE Administration Ketorolac Tromethamine 60 mg 03/31/18 14:10 03/31/18 14:30 Toradol IM 03/31/18 14:11 60 mg ONETIME ONE Administration Ondansetron HCl 4 mg 03/31/18 14:11 03/31/18 14:30 Zofran IM 03/31/18 14:12 4 mg ONETIME ONE Administration - Radiology Interpretation Free Text/Narrative:: CT Head: NAD CT T-spine: NAD CT L-spine: NAD - Re-Assessments/Exams Free Text/Narrative Re-Assessment/Exam: 03/31/18 16:08 Symptoms have improved. Departure - Departure Time of Disposition: 16:09 Disposition: Home, Self-Care 01 Condition: Good Clinical Impression: Back strain Qualifiers: Encounter type: initial encounter Qualified Code(s): S39.012A - Strain of muscle, fascia and tendon of lower back, initial encounter Upper back strain Qualifiers: Encounter type: initial encounter Qualified Code(s): S29.012A - Strain of muscle and tendon of back wall of thorax, initial encounter Cephalgia Qualifiers: Headache type: tension-type Headache chronicity pattern: acute headache Intractability: not intractable Qualified Code(s): G44.209 - Tension-type headache, unspecified, not intractable - Discharge Information *PRESCRIPTION DRUG MONITORING PROGRAM REVIEWED*: Yes *COPY OF PRESCRIPTION DRUG MONITORING REPORT IN PATIENT SEFERINO: No Prescriptions: Methocarbamol [Robaxin] 1,500 mg PO Q8H PRN #40 tab PRN Reason: Muscle Spasm Instructions: Mid-Back Strain, Tension Headache, Adult, [id number], Low Back Strain Referrals: Joe Queen MD [Primary Care Provider] - Forms: ED Department Discharge Additional Instructions: Continue Tylenol or Ibuprofen as needed for pain. Fill prescription for Robaxin and take as needed for muscle spasm. Rest, fluids. Return to the ER if symptoms worsen. - My Orders Last 24 Hours: My Active Orders 03/31/18 14:12 Head wo Cont [CT] Stat Lumbar Spine wo Cont [CT] Stat 03/31/18 15:45 Thoracic Spine wo Cont [CT] Stat - Assessment/Plan Last 24 Hours: My Active Orders 03/31/18 14:12 Head wo Cont [CT] Stat Lumbar Spine wo Cont [CT] Stat 03/31/18 15:45 Thoracic Spine wo Cont [CT] Stat
[2018-03-31] MEDS ORDERED: HYDROmorphone 2 MG/ML SDV IM ONE (15:29)
[2018-03-31 19:37] VITALS: BP 116/61
== END 2018-03-31 16:33 | disposition home or self-care (01) ==
LOC: FB.ED 13:38
DX: S39.012A Strain of muscle, fascia and tendon of lower back, initial encounter (principal); S29.012A Strain of muscle and tendon of back wall of thorax, initial encounter; G44.209 Tension-type headache, unspecified, not intractable; Z79.899 Other long term (current) drug therapy; X50.9XXA Other and unspecified overexertion or strenuous movements or postures, initial encounter
CPT/HCPCS: 70450; 72128; 72131; 96372; 99284; J1170; J1885; J2405

== ENCOUNTER 2019-10-11 06:54 | Day surgery (SDC) | payer OTHER ==
[~2019-10-11 06:54] MED LIST changes: +Lactated Ringers 1,000 ML IV SCH; -Lidocaine 1% with EPINEPHrine 1:100,000 20 ML MDV INFILT ONE; +Sodium Chloride 0.9% 10 ML Syringe FLUSH PRN; +ceFAZolin 1 GM Vial IVPUSH ONE; +ceFAZolin 1 GM in Sodium Chloride 0.9% 50 ML IV ONE
[2019-10-11] MEDS ORDERED: Ondansetron 4 MG/2 ML SDV IVPUSH ONE (06:55)
[2019-10-11] MEDS ORDERED: Dexmedetomidine 200 MCG/2 ML SDV IV ONE (06:55)
[2019-10-11] MEDS ORDERED: Midazolam 1 MG/ML 2 ML SDV IV ONE (06:55)
[2019-10-11] MEDS ORDERED: Glycopyrrolate 0.2 MG/ML 5 ML MDV IV ONE (06:55)
[2019-10-11] MEDS ORDERED: fentaNYL 100 MCG/2 ML SDV IV ONE (06:55)
[2019-10-11] MEDS ORDERED: Lidocaine 1% PF 2 ML SDV INJECT ONE (06:55)
[2019-10-11] MEDS ORDERED: Propofol 200 MG/20 ML SDV IV ONE (06:55)
[2019-10-11] MEDS ORDERED: ceFAZolin 1 GM Vial ONE (08:37)
--- NOTE | 2019-10-11 09:43 | PCM.HPR ---
H & P Addendum review - H & P Addendum Review Date of Original H & P: 09/20/19 Date Reviewed: 10/11/19 Time Reviewed: 08:00 Patient was Examined: No Changes
--- NOTE | 2019-10-11 09:44 | PCM.OPNOTE ---
- General Post-Op/Procedure Note Date of Surgery/Procedure: 10/11/19 Operative Procedure(s): R IH repair with mesh Findings: Indirect Hernia Pre Op Diagnosis: R IH Post-Op Diagnosis: Same Anesthesia Technique: Local, MAC Primary Surgeon: Rodrigo Ramon Anesthesia Provider: Corazon Herrera EBL in mLs: 5 Complications: None Condition: Good
[2019-10-11] MEDS ORDERED: Acetaminophen/HYDROcodone 325-5 MG Tab PO PRN (09:46)
[2019-10-11] MEDS ORDERED: Morphine 2 MG/ML Syringe IVPUSH PRN (09:47)
[2019-10-11 10:48] VITALS: PULSE 52
[2019-10-11 11:10] VITALS: BP 121/83
--- NOTE | 2019-10-11 11:15 | OR ---
DATE OF OPERATION: 10/11/2019 SURGEON: Rodrigo Ramon MD PREOPERATIVE DIAGNOSIS: Right inguinal hernia. POSTOPERATIVE DIAGNOSIS: Right inguinal hernia. PROCEDURE: Right inguinal hernia repair with mesh. ANESTHESIA: Local MAC. DESCRIPTION OF PROCEDURE: The patient was brought to the operating room, where IV sedation was administered. Surgical site had been marked and time-out performed. The right groin area was prepped with ChloraPrep and draped sterilely. A 50:50 mixture of 1% lidocaine with epinephrine and 0.25% Marcaine was used to infiltrate the skin and do a field block and later at the fascial level. A routine hernia incision was made and extended to the external fascia. Subcutaneous vessels were divided between clamps and tied with 3-0 Vicryl and smaller ones cauterized. External fascia was opened in line with the external ring. The ilioinguinal nerve was identified and retracted superiorly and protected from injury. The round ligament was dissected off the pubic tubercle, and a Tabby drain was placed around this. The structures were dissected down to the internal ring. A moderate-sized cord lipoma was present and suture- ligated at its base with 2-0 Vicryl and then transected. A moderate-sized indirect hernia sac was from the round ligament. Round ligament was divided between clamps and tied with 2-0 Vicryl. The indirect hernia sac was reduced through the internal ring and oversewn with 2-0 Vicryl. A 3 inch x 6 inch piece of mesh was then cut to size and secured to the pubic tubercle with 0 Prolene. Several more interrupted sutures were used to secure this to Celestino's ligament and then a transition stitch made to the shelving edge of Poupart's ligament medial to the femoral vein. After the inferior edge of the mesh was secured, a slit was made laterally to incorporate the ilioinguinal nerve and the edges resecured with 0 Prolene. The mesh was cut to length and tucked beneath the external fascia. The superior edge of the mesh was then secured to the muscle with interrupted 0 Prolene providing a tension-free repair. The wound was thoroughly irrigated with Ancef and saline and return was clear and hemostasis assured. The external fascia was closed with running 3-0 Vicryl. The subcutaneous tissue was reapproximated with 3-0 Vicryl and skin closed with hector. A sterile dressing was applied. The patient tolerated the procedure well. Estimated blood loss was 5 mL. She returned to Postanesthesia in stable condition. /[id number] ANTON/UBALDO
== END 2019-10-11 11:31 | disposition home or self-care (01) ==
LOC: FB.SDS 06:54
PROVIDERS: ATTEND Surgery
DX: K40.90 Unilateral inguinal hernia, without obstruction or gangrene, not specified as recurrent (principal); D17.1 Benign lipomatous neoplasm of skin and subcutaneous tissue of trunk; I10 Essential (primary) hypertension
CPT/HCPCS: A9270-GY; C1781; J0690; J2001; J2250; J2405; J2704; J3010; J3490; J7120

== ENCOUNTER 2020-04-06 06:35 | Emergency (ER) | payer OTHER ==
[2020-04-06] MEDS ORDERED: HYDROmorphone 2 MG/ML SDV IVPUSH ONE ×2 (06:46→08:55)
[2020-04-06] MEDS ORDERED: Iopamidol 755 Mg/ML 100 ML Bottle IV ONE (07:26)
--- NOTE | 2020-04-06 08:51 | EDM.PDOC ---
ED HPI GENERAL MEDICAL PROBLEM - General Chief Complaint: Abdominal Pain Time Seen by Provider: 04/06/20 07:00 Source of Information: Reports: Patient History Limitations: Reports: No Limitations - History of Present Illness INITIAL COMMENTS - FREE TEXT/NARRATIVE: pt with Hx of chronic pain syndrome and chronic recurrent abd pain , comes in with c/o sharp pain across her abd with loose stool and dry helves since last night , denies fever chills or any other associated sx or medical concerns. pt has Hx of recurrent diverticulitis, multiple abd surgeries and gastric bypass surgery , she uses Flexeril regularly for chronic pain. , Abdomen Pain Score (Numeric/FACES): 7 - Related Data Allergies Allergy/AdvReac Type Severity Reaction Status Date / Time No Known Allergies Allergy Verified 10/11/19 07:28 Home Meds: Home Meds clonazePAM [Clonazepam] 1 mg PO ASDIRECTED PRN 04/15/16 [History] Baclofen 10 mg PO TID PRN 10/10/19 [History] Biotin/Keratin [Biotin Plus Keratin Tablet] 1 each PO DAILY 10/10/19 [History] Multivitamin with Minerals [Multiple Vitamin] 1 each PO BID 10/10/19 [History] Sertraline [Zoloft] 150 mg PO DAILY 10/10/19 [History] Warfarin Dosing [Coumadin Ask] 10 mg PO ASDIRECTED 10/10/19 [History] Iron 18 mg PO DAILY 04/06/20 [History] Magnesium 30 mg PO DAILY 04/06/20 [History] Past Medical History Cardiovascular History: Reports: Blood Clots/VTE/DVT, Other (See Below) Other Cardiovascular History: States she has had 3-4 blood DVT's in the past. 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 Endocrine/Metabolic History: Reports: Obesity/BMI 30+ Hematologic History: Reports: Other (See Below) Other Hematologic History: Protein C deficiency. chronic coumadin therapy - Infectious Disease History Infectious Disease History: Reports: Chicken Pox, Shingles Other Infectious Disease History: Denies any milti-drug resistant infections. - Past Surgical History Head Surgeries/Procedures: Reports: None GI Surgical History: Reports: Other (See Below) Other GI Surgeries/Procedures: Hx colon resection, 9 inches, around 2012. gastric bypass. sigmoic colectomy Female Surgical History: Reports: Breast Reduction, Hysterectomy, Other (See Below) Other Female Surgeries/Procedures: Right ovary removed. Social & Family History - Family History Family Medical History: Noncontributory - Tobacco Use Smoking Status *Q: Unknown Ever Smoked - Caffeine Use Caffeine Use: Reports: Coffee, Soda, Tea Other Caffeine Use: Patient states she drinks small amount of soda. ED ROS GENERAL - Review of Systems Review Of Systems: See Below Constitutional: Reports: No Symptoms HEENT: Reports: No Symptoms Respiratory: Reports: No Symptoms Cardiovascular: Reports: No Symptoms GI/Abdominal: Reports: Abdominal Pain. Denies: Anorexia, Black Stool, Bloody Stool, Constipation, Diarrhea, Distension : Reports: No Symptoms Musculoskeletal: Reports: No Symptoms Skin: Reports: No Symptoms Neurological: Reports: No Symptoms ED EXAM, GENERAL - Physical Exam Exam: See Below Exam Limited By: No Limitations General Appearance: Mild Distress, Moderate Distress Eye Exam: Bilateral Eye: Normal Inspection Ears: Normal External Exam, Normal Canal Nose: Normal Inspection Throat/Mouth: Normal Inspection Head: Atraumatic, Normocephalic Neck: Normal Inspection, Supple, Non-Tender Respiratory/Chest: No Respiratory Distress, Lungs Clear Cardiovascular: Normal Peripheral Pulses, Regular Rate, Rhythm GI/Abdominal: Normal Bowel Sounds, Soft, No Distention, Tender. No: Distended, Guarding, Rebound Back Exam: Normal Inspection Extremities: Normal Inspection Neurological: Alert, Oriented, CN II-XII Intact Psychiatric: Normal Affect Skin Exam: Warm Course - Vital Signs Text/Narrative:: unremarkable labs and CT results were explained to pt, pt has chronic recurrent abd pain and there are no signs of acute abd on exam , she is stable for discharge and was asked to follow with PCP on mng of chronic pain. Last Recorded V/S: Last Vital Signs Temp 36.6 C 04/06/20 07:17 Pulse 65 04/06/20 07:17 Resp 16 04/06/20 07:17 BP 127/89 04/06/20 07:17 Pulse Ox 99 04/06/20 07:17 - Orders/Labs/Meds Orders: Active Orders 24 hr Category Date Time Status Abdomen Pelvis w Cont [CT] Stat Exams 04/06/20 06:48 Ordered Labs: Laboratory Tests 04/06/20 04/06/20 04/06/20 Range/Units 07:00 07:00 07:10 WBC 4.7 (4.5-12.0) X10-3/uL RBC 4.36 (3.23-5.20) x10(6)uL Hgb 12.9 (11.5-15.5) g/dL Hct 39.9 (30.0-51.3) % MCV 91.5 (80-96) fL MCH 29.5 (27.7-33.6) pg MCHC 32.3 (32.2-35.4) g/dL RDW 13.3 (11.5-15.5) % Plt Count 230 (125-369) X10(3)uL MPV 10.1 (7.4-10.4) fL Neut % (Auto) 61.9 (46-82) % Lymph % (Auto) 31.1 (13-37) % [place] % (Auto) 5.2 (4-12) % Eos % (Auto) 1 (1.0-5.0) % Baso % (Auto) 1 (0-2) % Neut # (Auto) 2.9 (1.6-8.3) # Lymph # (Auto) 1.5 (0.6-5.0) # [place] # (Auto) 0.2 (0.0-1.3) # Eos # (Auto) 0.0 (0.0-0.8) # Baso # (Auto) 0.1 (0.0-0.2) # Sodium 142 (135-145) mmol/L Potassium 4.3 (3.5-5.3) mmol/L Chloride 107 (100-110) mmol/L Carbon Dioxide 29 (21-32) mmol/L BUN 19 H (7-18) mg/dL Creatinine 0.6 (0.55-1.02) mg/dL Est Cr Clr Drug Dosing TNP Estimated GFR (MDRD) > 60 (>60) BUN/Creatinine Ratio 31.7 H (9-20) Glucose 96 (80-116) mg/dL Calcium 9.2 (8.6-10.2) mg/dL Total Bilirubin 0.5 (0.1-1.3) mg/dL AST 23 D (5-25) IU/L ALT 29 (12-36) U/L Alkaline Phosphatase 65 (56-112) IU/L Total Protein 6.7 (6.0-8.0) g/dL Albumin 3.5 (3.5-5.2) g/dL Globulin 3.2 g/dL Albumin/Globulin Ratio 1.1 Amylase 44 (25-115) U/L Urine Color Yellow (YELLOW) Urine Appearance Clear (CLEAR) Urine pH 8.0 H (5.0-6.5) Ur Specific [place] 1.010 (1.010-1.025) Urine Protein Negative (NEGATIVE) mg/dL Urine Glucose (UA) Normal (NORMAL) mg/dL Urine Ketones Negative (NEGATIVE) mg/dL Urine Occult Blood Negative (NEGATIVE) Urine Nitrite Negative (NEGATIVE) Urine Bilirubin Negative (NEGATIVE) Urine Urobilinogen Normal (NEGATIVE) mg/dL Ur Leukocyte Esterase Negative (NEGATIVE) Urine WBC 0-5 (0-5) Ur Squamous Epith Cells Few H (NS,R,O) Urine Bacteria Few H (NS) Meds: Medications Discontinued Medications Generic Name Dose Route Start Last Admin Trade Name Freq PRN Reason Stop Dose Admin Hydromorphone HCl 1 mg 04/06/20 06:46 04/06/20 07:04 Dilaudid IVPUSH 04/06/20 06:47 1 mg ONETIME ONE Administration Iopamidol 83 ml 04/06/20 07:26 04/06/20 07:43 Isovue-370 (76%) IV 04/06/20 07:27 83 ml . DIRECTED ONE Administration Departure - Departure Time of Disposition: 08:54 Disposition: Home, Self-Care 01 Clinical Impression: Abdominal pain Qualifiers: Abdominal location: left lower quadrant Qualified Code(s): R10.32 - Left lower quadrant pain - Discharge Information Referrals: Yesy Troncoso NP [Primary Care Provider] - Sepsis Event Note (ED) - Evaluation Sepsis Screening Result: No Definite Risk - Focused Exam Vital Signs: Vital Signs Temp Pulse Resp BP Pulse Ox 04/06/20 07:17 36.6 C 65 16 127/89 99
[2020-04-06 10:05] VITALS: BP 115/74; PULSE 58
== END 2020-04-06 09:25 | disposition home or self-care (01) ==
LOC: FB.ED 06:35
DX: R10.32 Left lower quadrant pain (principal); J45.909 Unspecified asthma, uncomplicated; F41.9 Anxiety disorder, unspecified; F32.9 Major depressive disorder, single episode, unspecified; E66.9 Obesity, unspecified; Z79.899 Other long term (current) drug therapy
CPT/HCPCS: 74177; 80053; 81001; 82150; 85025; 96374; 96376; 99284; J1170; Q9967

== ENCOUNTER 2020-04-25 08:07 | Day surgery (SDC) | payer OTHER ==
[~2020-04-25 08:07] MED LIST changes: -Lactated Ringers 1,000 ML IV SCH; -ceFAZolin 1 GM Vial IVPUSH ONE
[2020-04-25] MEDS ORDERED: Ketorolac 30 MG/ML SDV IVPUSH ONE (08:08)
[2020-04-25] MEDS ORDERED: Propofol 1,000 MG/100 ML SDV IV ONE (08:08)
[2020-04-25] MEDS ORDERED: HYDROmorphone 2 MG/ML SDV IV ONE (08:08)
[2020-04-25] MEDS ORDERED: Ondansetron 4 MG/2 ML SDV IVPUSH ONE (08:08)
[2020-04-25] MEDS ORDERED: Midazolam 1 MG/ML 2 ML SDV IV ONE (08:08)
[2020-04-25] MEDS ORDERED: Triamcinolone Acetonide 40 MG/ML 1 ML SDV IM ONE (08:08)
[2020-04-25] MEDS ORDERED: fentaNYL 100 MCG/2 ML SDV IV ONE (08:08)
[2020-04-25] MEDS: Lactated Ringers 1,000 ML IV SCH (09:20)
[2020-04-25] MEDS: ceFAZolin 1 GM Vial IVPUSH ONE (09:29)
--- NOTE | 2020-04-25 09:34 | PCM.HPR ---
H & P Addendum review - H & P Addendum Review Date of Original H & P: 04/20/20 Date Reviewed: 04/25/20 Time Reviewed: 09:34 Patient was Examined: No Changes
[2020-04-25] MEDS: Bupivacaine 0.5% 30 ML SDV INJECT ONE (10:21)
[2020-04-25] MEDS: ceFAZolin 1 GM Vial ONE (10:21)
[2020-04-25] MEDS: Lidocaine 1% with EPINEPHrine 1:100,000 20 ML MDV INJECT ONE (10:21)
--- NOTE | 2020-04-25 11:27 | PCM.OPNOTE ---
- General Post-Op/Procedure Note Date of Surgery/Procedure: 04/25/20 Operative Procedure(s): L IH repair with mesh. Inject R Groin with Kenalog Findings: Indirect hernia Pre Op Diagnosis: L IH. R groin pain Post-Op Diagnosis: Same Anesthesia Technique: Local, MAC Primary Surgeon: Rodrigo Ramon Anesthesia Provider: Corazon DIANA in mLs: 5 Complications: None Condition: Good
[2020-04-25 12:22] VITALS: BP 120/78; PULSE 54
[2020-04-25] MEDS: Acetaminophen/HYDROcodone 325-5 MG Tab PO PRN (12:25)
--- NOTE | 2020-04-25 14:15 | OR ---
DATE OF OPERATION: 04/25/2020 SURGEON: Rodrigo Ramon MD PREOPERATIVE DIAGNOSES: 1. Left inguinal hernia. 2. Chronic right groin pain. POSTOPERATIVE DIAGNOSES: 1. Left inguinal hernia. 2. Chronic right groin pain. PROCEDURES: 1. Left inguinal hernia repair with mesh. 2. Injection, right groin. ANESTHESIA: Local MAC. HISTORY: This 44-year-old female was seen in the clinic last week with a bulging in her left inguinal region. This was a similar finding she had in her right groin last year. She does have some pain in her right groin along the scar and she does have a tender spot that I told her I could inject with anesthetic and steroid at the time of surgery. Risks and complications have been reviewed and informed consent obtained. DESCRIPTION OF PROCEDURE: The patient was brought to the operating room, after surgical site had been initialed by myself and the patient. IV sedation was administered. The right and left lower abdomen were prepped with ChloraPrep and draped sterilely. A 50:50 mixture of 1% lidocaine with epinephrine and 0.25% Marcaine was infiltrated in the left groin. A routine skin incision was made and extended to the external fascia. The subcutaneous tissue was cauterized and small vessels ligated with 3-0 Vicryl Reel. External fascia was cleared to the external ring. This was opened and I could not find an ilioinguinal nerve. The round ligament was dissected off the pubic tubercle, and a Tabby drain was placed around this. This was dissected to the internal ring and from an indirect hernia sac. There was also a small cord lipoma that was dissected down to the base and transected and ligated with 3-0 Vicryl. The round ligament was transected between clamps at the pubic tubercle and internal ring and each end tied with 2-0 Vicryl. The hernia sac was reduced into the internal ring and this defect closed with a [id number] 2-0 Vicryl. A routine hernia repair was then performed using polypropylene mesh. This was cut to size at approximately 2.5 x 4 inches. This was secured to the pubic tubercle with 0 Prolene. Several interrupted sutures were used to secure this to Celestino's ligament inferiorly and then a transition stitch made to the shelving edge of Poupart's ligament medial to the femoral vein. After the inferior edge was secured, the superior edge was secured to the muscle using interrupted 0 Prolene providing a tension-free repair. The wound was thoroughly irrigated with Ancef and saline and hemostasis assured. External fascia was closed with a running 2- 0 Vicryl. The subcutaneous tissue was reapproximated with interrupted 3-0 Vicryl and skin closed with hector. A sterile dressing was applied. The area of pain in the right groin was injected with a mixture of 1 mL of 1% lidocaine with epinephrine, 1 mL of 0.25% Marcaine and 1 mL of Kenalog 40. The patient tolerated the procedure well and returned to Recovery in stable condition. ESTIMATED BLOOD LOSS: Less than 5 mL. /[id number] ANTON/UBALDO
== END 2020-04-25 12:55 | disposition home or self-care (01) ==
LOC: FB.SDS 08:07
PROVIDERS: ATTEND Surgery
DX: K40.90 Unilateral inguinal hernia, without obstruction or gangrene, not specified as recurrent (principal); Z98.891 History of uterine scar from previous surgery; Z01.812 Encounter for preprocedural laboratory examination; Z20.828 Contact with and (suspected) exposure to other viral communicable diseases
CPT/HCPCS: 00830; 49505; 94150; A9270; C1781; J0690; J1170; J1885; J2250; J2405; J2704; J3010; J3301; J3490; J7120

== ENCOUNTER 2020-04-30 11:41 | Emergency (ER) | payer OTHER ==
--- NOTE | 2020-04-30 12:28 | EDM.PDOC ---
ED HPI GENERAL MEDICAL PROBLEM - General Chief Complaint: Abdominal Pain Stated Complaint: POST OP INFECTED Time Seen by Provider: 04/30/20 12:10 Source of Information: Reports: Patient, Old Records History Limitations: Reports: No Limitations - History of Present Illness INITIAL COMMENTS - FREE TEXT/NARRATIVE: Mena comes into [facility] ED from the Clinic with a painful swelling at operative site from abdominal hernia repair 5 days ago. Swelling has increased over the past 24 hrs, without erythema, discharge, or discoloration. The mass underlying intact wound is approximately 12 cm sized at this time. I have suggested sponge maker surgeon to inspect this finding and recommendations for managment. She is on Lovenox and Coumadin, and a hematoma is suspected. - Related Data Allergies Allergy/AdvReac Type Severity Reaction Status Date / Time No Known Allergies Allergy Verified 04/25/20 09:03 Home Meds: Home Meds clonazePAM [Clonazepam] 1 mg PO ASDIRECTED PRN 04/15/16 [History] Baclofen 10 mg PO TID PRN 10/10/19 [History] Biotin/Keratin [Biotin Plus Keratin Tablet] 1 each PO DAILY 10/10/19 [History] Multivitamin with Minerals [Multiple Vitamin] 1 each PO BID 10/10/19 [History] Sertraline [Zoloft] 150 mg PO DAILY 10/10/19 [History] Warfarin Dosing [Coumadin Ask] 10 mg PO ASDIRECTED 10/10/19 [History] Iron 100 mg PO DAILY 04/06/20 [History] Magnesium 400 mg PO DAILY 04/06/20 [History] Biotin/Keratin [Biotin Plus Keratin Tablet] 1 each PO DAILY 04/24/20 [History] Hydrocodone/Acetaminophen [[place] 5-325 Tablet] 1 each PO Q4H PRN 04/24/20 [History] Omeprazole 10 mg PO DAILY 04/24/20 [History] Enoxaparin [Lovenox] 60 units SQ BID 04/25/20 [History] Past Medical History Cardiovascular History: Reports: Blood Clots/VTE/DVT, Other (See Below) Other Cardiovascular History: States she has had 3-4 blood DVT's in the past. Respiratory History: Reports: Asthma, Sleep Apnea Gastrointestinal History: Reports: Diverticulosis, GERD, Other (See Below) Other Gastrointestinal History: diverticulitis; gastric bypass surgery october 2018 Genitourinary History: Reports: None REEL ASSEMBLER History: Reports: Other (See Below) Other REEL ASSEMBLER History: left ovary removal. 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 Endocrine/Metabolic History: Reports: Obesity/BMI 30+ Hematologic History: Reports: Other (See Below) Other Hematologic History: Protein C deficiency. chronic coumadin therapy - Infectious Disease History Infectious Disease History: Reports: Chicken Pox, Shingles Other Infectious Disease History: Denies any milti-drug resistant infections. - Past Surgical History Head Surgeries/Procedures: Reports: None GI Surgical History: Reports: Other (See Below) Other GI Surgeries/Procedures: Hx colon resection, 9 inches, around 2012. gastric bypass. sigmoic colectomy Female Surgical History: Reports: Breast Reduction, Hysterectomy, Other (See Below) Other Female Surgeries/Procedures: Right ovary removed. Social & Family History - Family History Family Medical History: Noncontributory - Caffeine Use Caffeine Use: Reports: None Other Caffeine Use: Patient states she drinks small amount of soda. ED ROS GENERAL - Review of Systems Review Of Systems: Comprehensive ROS is negative, except as noted in HPI. ED EXAM, GENERAL - Physical Exam Exam: See Below Exam Limited By: No Limitations General Appearance: Alert, WD/WN, No Apparent Distress, Anxious Eye Exam: Bilateral Eye: EOMI, Normal Inspection, PERRL Ears: Normal External Exam Nose: Normal Inspection Throat/Mouth: Normal Inspection, Normal Oropharynx Head: Normocephalic Neck: Normal Inspection, Supple, Non-Tender Respiratory/Chest: Lungs Clear, Chest Non-Tender Cardiovascular: Normal Peripheral Pulses, Regular Rate, Rhythm, No Murmur GI/Abdominal: Normal Bowel Sounds, Soft, No Organomegaly, Tender (12 cm mobile mass underlying surgical site of abdominal wound repair LLQ) (Female) Exam: Deferred Rectal (Female) Exam: Deferred Back Exam: Normal Inspection, Full Range of Motion Extremities: Normal Inspection, Normal Range of Motion Neurological: Alert, Oriented, CN II-XII Intact, Normal Cognition, No Motor/Sensory Deficits Psychiatric: Normal Affect, Anxious Skin Exam: Warm, Dry, Intact, Normal Color, No Rash Lymphatic: No Adenopathy Course - Vital Signs Text/Narrative:: Mena will go over to the Clinic to see Surgeon consulting senior practice director to inspect findings. - Orders/Labs/Meds Orders: Active Orders 24 hr Category Date Time Status CBC WITH AUTO DIFF [HEME] Stat Lab 04/30/20 12:32 Received INR,PT,PROTHROMBIN TIME [COAG] Stat Lab 04/30/20 12:32 Received Departure - Departure Time of Disposition: 12:45 Disposition: Home, Self-Care 01 Condition: Fair Clinical Impression: Abdominal pain, LLQ - Discharge Information *PRESCRIPTION DRUG MONITORING PROGRAM REVIEWED*: Not Applicable *COPY OF PRESCRIPTION DRUG MONITORING REPORT IN PATIENT SEFERINO: Not Applicable Referrals: Yesy Troncoso NP [Primary Care Provider] - Forms: ED Department Discharge - Problem List & Annotations (1) Abdominal pain SNOMED Code(s): 71026271 Code(s): R10.9 - UNSPECIFIED ABDOMINAL PAIN Status: Acute Current Visit: No Annotation/Comment:: To see Surgeon consulting senior practice director this afternoon in Clinic. Qualifiers: Abdominal location: left lower quadrant Qualified Code(s): R10.32 - Left lower quadrant pain - Problem List Review Problem List Initiated/Reviewed/Updated: Yes - My Orders Last 24 Hours: My Active Orders 04/30/20 12:32 CBC WITH AUTO DIFF [HEME] Stat INR,PT,PROTHROMBIN TIME [COAG] Stat - Assessment/Plan Last 24 Hours: My Active Orders 04/30/20 12:32 CBC WITH AUTO DIFF [HEME] Stat INR,PT,PROTHROMBIN TIME [COAG] Stat Plan: Follow up per Surgery.
[2020-04-30 13:12] VITALS: BP 136/77; PULSE 57
== END 2020-04-30 13:20 | disposition home or self-care (01) ==
LOC: FB.ED 11:41
DX: R10.32 Left lower quadrant pain (principal); J45.909 Unspecified asthma, uncomplicated; K21.9 Gastro-esophageal reflux disease without esophagitis; F41.9 Anxiety disorder, unspecified; F32.9 Major depressive disorder, single episode, unspecified; E66.9 Obesity, unspecified; Z79.01 Long term (current) use of anticoagulants; Z68.23 Body mass index [BMI] 23.0-23.9, adult; Z79.899 Other long term (current) drug therapy
CPT/HCPCS: 36415; 85025; 85610; 99283